=== PATIENT | female | born 1950 | race Hispanic/Latino ===

== ENCOUNTER 2017-08-17 01:09 | Day surgery (SDC) | payer OTHER ==
[2017-08-14 11:53] VITALS: BP 172/78
[2017-08-14 12:19] LABS: BASOPHILS % (AUTO) 0.9 % (0.0-5.0); EOSINOPHILS % (AUTO) 3.7 % (0.0-8.0); HEMATOCRIT 40.9 % (36-48); LYMPHOCYTES % (AUTO) 36.4 % (21.0-51.0); MEAN CORPUSCULAR HEMOGLOBIN 30.1 pg (27.0-33.0); MEAN CORPUSCULAR HGB CONC 34.4 g/dL (32.0-36.0); MEAN CORPUSCULAR VOLUME 87.3 fL (79-99); MONOCYTES % (AUTO) 10.2 % (3.0-13.0); NEUTROPHILS % (AUTO) 48.8 % (40.0-77.0); PLATELET COUNT (AUTO) 255 K/uL (130-400); RED BLOOD CELL COUNT(AUTO) 4.68 MIL/uL (4.00-5.50); RED CELL DISTRIBUTION WIDTH 12.9 % (11.0-15.5); WHITE BLOOD COUNT (AUTO) 6.9 K/uL (4.8-10.8)
[2017-08-14 12:27] LABS: APPEARANCE,URINE Clear (CLEAR); BILIRUBIN,URINE Negative (NEGATIVE); COLOR,URINE Yellow (YELLOW); GLUCOSE, URINE (UA) Negative (NEGATIVE); KETONES,URINE Negative (NEGATIVE); LEUKOCYTE ESTERASE ,URINE Small (NEGATIVE); NITRATE,URINE Negative (NEGATIVE); OCCULT BLOOD,URINE Negative (NEGATIVE); PROTEIN,URINE Negative (NEGATIVE)
[2017-08-14 12:36] LABS: CREATININE 0.9 mg/dL (0.5-1.5); POTASSIUM 4.4 mmol/L (3.5-5.1)
[2017-08-14 12:42] LABS: INR 0.95 (0.85-1.15); PARTIAL THROMBOPLASTIN TIME 27.1 SEC (26.3-35.5)
[2017-08-14 13:24] LABS: BACTERIA,URINE Rare /HPF (None Seen); SQUAMOUS EPITHELIAL CELL,UR Few /LPF (0-2); WBC,URINE 0-1 /HPF (0-1)
[~2017-08-17] VITALS: Ht 156.2 cm; Wt 78.3 kg
[2017-08-17] VITALS (10 sets, daily range): BP systolic 116–149; BP diastolic 60–83
[~2017-08-17 01:09] MED LIST: ACET1TAB25 PO; ASPI-1005 PO; ISOS30TA6 PO; METF500T6 PO; METO-391 PO; NITR0.4T50 SL; OMEP40CA37 PO; PRAV40TA3 PO; SODIUM CHLORIDE 0.9% 500ML 500 ML IV SCH; VALS40TA10 PO
[2017-08-17] MEDS ORDERED: IOPAMIDOL-370 100 ML VIAL IV ONE ×2 (14:48→15:27)
[2017-08-17] MEDS ORDERED: NITROGLYCERIN 5 MG/ML 10 ML VIAL IV ONE (14:48)
[2017-08-17] MEDS ORDERED: ISOVUE-370 50ML VIAL IV ONE (14:48)
[2017-08-17] MEDS ORDERED: LIDOCAINE HCL 2% 20ML ONE (14:48)
[2017-08-17] MEDS ORDERED: SODIUM CHLORIDE 0.9% 1000ML 1,000 ML IV SCH (15:51)
[2017-08-17] MEDS ORDERED: GLUCAGON 1MG KIT 1 MG ML IM PRN (16:00)
[2017-08-17] MEDS ORDERED: METOPROLOL TARTRATE 1 MG/ML 5ML VIAL IV PRN (16:00)
[2017-08-17] MEDS ORDERED: DEXTROSE 50%-WATER 50 ML DISP.SYRIN IV PRN (16:00)
[2017-08-17] MEDS ORDERED: HYDRALAZINE HCL 20 MG/ML VIAL IV PRN (16:00)
== END 2017-08-17 19:37 | disposition home or self-care (01) ==
LOC: DAH 01:09
PROVIDERS: ATTEND Internal Medicine Cardiovascular Disease
DX: I25.119 Atherosclerotic heart disease of native coronary artery with unspecified angina pectoris (principal); I11.9 Hypertensive heart disease without heart failure; E11.9 Type 2 diabetes mellitus without complications; E78.4 Other hyperlipidemia; Z79.82 Long term (current) use of aspirin; Z79.899 Other long term (current) drug therapy; Z95.1 Presence of aortocoronary bypass graft
CPT/HCPCS: 36415; 71045; 80048; 81001; 82948; 85025; 85610; 85730; 93005; 93459; A4606; C1894 ×2; J1644; J3490 ×2; Q9967 ×2

== ENCOUNTER 2025-02-03 07:13 | Day surgery (SDC) | payer OTHER ==
--- NOTE | 2025-02-01 11:11 | EKG ---
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
[2025-02-01 11:19] LABS: IMMATURE GRANULOCYTE ABSOLUTE 0.02 K/uL (0-1); NUCLEATED RED BLOOD CELLS 0.0 % (0.0-0.19); PLATELET COUNT (AUTO) 221 K/uL (130-400); RED BLOOD CELL COUNT(AUTO) 4.54 MIL/uL (4.00-5.50); RED CELL DISTRIBUTION WIDTH 12.7 % (11.0-15.5); WHITE BLOOD COUNT (AUTO) 6.7 K/uL (4.8-10.8)
[2025-02-01 11:26] LABS: CREATININE 0.8 mg/dL (0.5-1.0); GLOMERULAR FILTR. RATE CALC 77.0 mL/min (>90); GLUCOSE,RANDOM 127.0 mg/dL (70-105); SODIUM SERUM 141.0 mmol/L (136-145); UREA NITROGEN, BLOOD 15.0 mg/dL (7-18)
[2025-02-01 11:33] LABS: INR 0.97 (0.85-1.15)
[2025-02-01 11:47] VITALS: BP 159/77; PULSE 66; RESP 17; TEMP 97.9
--- NOTE | 2025-02-01 16:05 | HMCIMG ---
EXAM: CR Chest, 1 View. CLINICAL HISTORY: PREOP COMPARISON: 08/14/2017 FINDINGS: LUNGS: The lungs show no infiltrate or other acute finding. PLEURAL SPACES: No evidence of pleural effusion or pneumothorax. MEDIASTINUM: Cardiac size and mediastinal contours within normal limits. Again noted are sternotomy wires. BONES: No aggressive appearing osseous lesion seen. IMPRESSION: No acute cardiopulmonary pathology is evident. /[place]
[2025-02-03] VITALS (9 sets, daily range): BP systolic 137–152; BP diastolic 42–76; PULSE 48–72; RESP 12–18; TEMP 97.7
[~2025-02-03] VITALS: Ht 154.9 cm; Wt 71.4 kg
[~2025-02-03 07:13] MED LIST changes: -ACET1TAB25 PO; +ATOR40TA71 PO; -ISOS30TA6 PO; +LOSA50TA64 PO; +MELO-108 PO; +METF-444 PO; -METF500T6 PO; -NITR0.4T50 SL; -OMEP40CA37 PO; -PRAV40TA3 PO; -SODIUM CHLORIDE 0.9% 500ML 500 ML IV SCH; -VALS40TA10 PO
[2025-02-03] MEDS: 0.9%NACL 1000ML 1,000 ML IV SCH (08:06)
[2025-02-03] MEDS ORDERED: IOHEXOL 350 MG/ML 100ML INFUS..BTL IV ONE (11:01)
[2025-02-03] MEDS ORDERED: LIDOCAINE HCL 400MG/20ML VIAL ONE (11:01)
[2025-02-03] MEDS ORDERED: NITROGLYCERIN 50MG VIAL ONE (11:02)
[2025-02-03] MEDS ORDERED: HEParin-NS 1,000 UNIT/500 ML 1,000 ML IV ONE (11:02)
[2025-02-03] MEDS ORDERED: MIDAZOLAM HCL 1 MG/ML 2ML VIAL ONE ×2 (11:14→11:43)
[2025-02-03] MEDS ORDERED: HEParin-NS 1,000 UNIT/500 ML 500 ML IV ONE ×2 (11:40→11:41)
[2025-02-03] MEDS ORDERED: GLUCAGON 1MG KIT 1 MG ML IM PRN (12:00)
[2025-02-03] MEDS ORDERED: NITROGLYCERIN 0.4 MG SL TAB SL PRN (12:00)
[2025-02-03] MEDS ORDERED: 0.9%NACL 1000ML 1,000 ML IV SCH (12:00)
[2025-02-03] MEDS ORDERED: DEXTROSE 50%-WATER 50 ML DISP.SYRIN IV PRN (12:00)
--- NOTE | 2025-02-03 12:16 | PRN ---
Left Heart Cath-King PROCEDURE: 1. Right common femoral arterial sheath placement. 2. Selective coronary angiogram. 3. Left heart catheterization. 4. Left ventriculogram. 5. CONSCIOUS SEDATION 6. Omni wire pressure assessment of proximal LAD stent and distal LAD lesion and ostial proximal left circumflex lesion INDICATIONS: Abnormal coronary CT angiogram Chest pain DESCRIPTION OF PROCEDURE: The patient was brought to the catheterization suite and prepped and draped in sterile fashion. An IV was started, if not already in place and both groins were exposed for arterial access. 1% lidocaine was used for local anesthesia and then a micropuncture kit was used to gain access and once free-flowing blood was seen, modified Seldinger technique was utilized to place a 6 [place] Island[place] sheath into the right common femoral artery. Next, preformed JL4 and JR4 Catheters were then used to selectively engage the [place] coronary vessels and multiple hand contrast injections were performed in different views to define the coronary anatomy. With multiple lesions in question it was felt further assessment should be done with an omni wire fracture assessment. Therefore patient was given 5000 units of heparin and a six [place] q.4 guide catheter was then placed into the left coronary system. Next an omni wire was then placed initially in the mid LAD with assessments revealing values of 0.89 and 0.91 and then when we did assessment to the distal LAD lesion that value was at 0.88. Next the Omni wire was then placed to assess the ostial left circumflex and that volume ratio was at 0.66. At end of case Perclose device was used for closure of arteriotomy site and no complications occurred. FINDINGS: The left main artery trifurcates into LAD small ramus intermediate in the left circumflex artery. The left main artery in its distal segment has eccentric stenosis leading into the left circumflex vessel of approximately 40-50%. The left anterior descending artery has a long stent noted from proximal to mid segment within stent restenosis noted proximally 60-70%. There was also a distal LAD lesion that appears to be significant at 75-80%. The ratio after in stent restenosis within the stent was at 0 point nine 0 and 0.89 and then after the distal LAD lesion the ratio was at 0.88. The ramus intermediate in its ostial segment is diffusely disease but as a small-vessel. The left circumflex artery takes off from the left main artery at a-110 degree angle in his a large vessel with an ostial stenosis best appreciated in the JULIETH 5, caudal 37 approximately 85% with an omni wire ratio of 0.66. The ongoing circumflex is free of any significant disease. The right coronary artery and its proximal segment has a 30% lesion. This is a dominant system and gives rise to the PDA and RPL. The LVEF is approximately 60-65%. LVEDP is elevated at 17 mmHg. There was no evidence of aortic stenosis or mitral regurgitation. RECOMMENDATIONS: Considering severe angle of left circumflex and the distal left main involvement in addition to InStent restenosis of LAD stent and distal LAD disease I think patient should have at the very least a surgical opinion regarding possible redo surgery. A patient is not felt to be a surgical candidate as PATTERSON has been utilized in his currently atraumatic we may consider high-risk angioplasty and stenting versus continued medical management versus referral to a higher level of care to proceed with high-risk percutaneous coronary intervention MARRY KING MD Feb 03, 2025 12:16
--- NOTE | 2025-02-03 12:42 | NUR ---
Dr King to speak with Patient and Family at length. All questions answered. Right Femoral site clean, dry with no sign of bleeding, bruising or hematoma. Pedal pulses intact to BLE's. Patient denies c/o jennie or discomfort. IVF's as per orders. HOB 15'. SR's x 2. Call light in reach. Reported off in full to MICHELLE Gage.
--- NOTE | 2025-02-03 15:55 | NUR ---
BOTH PT AND SPOUSE GIVEN VERBAL AND WRITTEN DISCHARGE INSTRUCTIONS. IV REMOVED SITE ASYMPTOMATIC. PT GIVEN WRITTEN PHONE NUMBER AND ADDRESS TO [facility] TOLD THEM TO EXPECT A PHONE CALL FOR FOLLOW UP. IV REMOVED SITE ASYMPTOMATIC. PT TAKEN OUT VIA WHEELCHAIR [facility].
== END 2025-02-03 15:50 | disposition home or self-care (01) ==
LOC: DAH 07:13
PROVIDERS: ATTEND Internal Medicine Cardiovascular Disease
DX: R94.39 Abnormal result of other cardiovascular function study (principal); I25.118 Atherosclerotic heart disease of native coronary artery with other forms of angina pectoris; I25.84 Coronary atherosclerosis due to calcified coronary lesion; T82.855A Stenosis of coronary artery stent, initial encounter; I10 Essential (primary) hypertension; E78.5 Hyperlipidemia, unspecified; Z79.82 Long term (current) use of aspirin; Z79.84 Long term (current) use of oral hypoglycemic drugs; Z95.1 Presence of aortocoronary bypass graft; Z79.899 Other long term (current) drug therapy; Y71.2 Prosthetic and other implants, materials and accessory cardiovascular devices associated with adverse incidents
CPT/HCPCS: 80048; 83880; 85025; 85610; 85730; 36415; 71045; 93005; 93458; 93571; 93572; 82948; 99156; 99157 ×2; C1887; C1894 ×2; C1760; C1769; J3010 ×2; J3490 ×2; J1644 ×4; J2250 ×2; Q9967; A4215; A4335; A4222; A4221; A4663; A4216; A4606; Q9965 ×2; A4223 ×3; A4554; 96360; 96361

== ENCOUNTER 2025-06-09 09:30 | Observation (INO) | payer OTHER ==
--- NOTE | 2025-06-07 12:49 | EKG ---
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
[2025-06-07 12:53] LABS: IMMATURE GRANULOCYTE ABSOLUTE 0.00 K/uL (0-1); NUCLEATED RED BLOOD CELLS 0.0 % (0.0-0.19); PLATELET COUNT (AUTO) 199 K/uL (130-400); RED BLOOD CELL COUNT(AUTO) 4.15 MIL/uL (4.00-5.50); RED CELL DISTRIBUTION WIDTH 12.4 % (11.0-15.5); WHITE BLOOD COUNT (AUTO) 6.5 K/uL (4.8-10.8)
[2025-06-07 13:00] VITALS: BP 140/69; PULSE 73; RESP 16; TEMP 98.1
[2025-06-07 13:08] LABS: CREATININE 0.8 mg/dL (0.5-1.0); GLOMERULAR FILTR. RATE CALC 77.0 mL/min (>90); GLUCOSE,RANDOM 124.0 mg/dL (70-105); SODIUM SERUM 136.0 mmol/L (136-145); UREA NITROGEN, BLOOD 18.0 mg/dL (7-18)
[2025-06-07 13:11] LABS: INR 1.01 (0.85-1.15)
--- NOTE | 2025-06-07 14:13 | HMCIMG ---
STUDY CR chest, 1 view. HISTORY Preoperative evaluation. TECHNIQUE Single frontal view of the chest. COMPARISON Chest radiograph dated 02/01/2025 at 12:10 EDT. FINDINGS Lungs The lungs are clear without focal infiltrate or acute pulmonary abnormality. Pleural spaces No pleural effusion or pneumothorax is identified. Heart and mediastinum The cardiomediastinal silhouette is within normal limits. Bones and soft tissues Median sternotomy sutures are present. No aggressive or acute osseous abnormality is seen. IMPRESSION * Median sternotomy changes without acute cardiopulmonary abnormality. /[place]
[~2025-06-09] VITALS: Ht 167.6 cm; Wt 60.8 kg
[2025-06-09] VITALS (33 sets, daily range): BP systolic 111–153; BP diastolic 51–77; PULSE 59–78; RESP 12–18; TEMP 97–207.1; O2SAT 98
[~2025-06-09 09:30] MED LIST changes: +ISOS30TA92 PO; -MELO-108 PO; +NITR0.4T50 SL
[2025-06-09] MEDS: 0.9%NACL 1000ML 1,000 ML IV ONE (10:48)
[2025-06-09] MEDS ORDERED: LIDOCAINE HCL 400MG/20ML VIAL ONE (13:04)
[2025-06-09] MEDS ORDERED: HEParin-NS 1,000 UNIT/500 ML 1,000 ML IV ONE (13:05)
[2025-06-09] MEDS ORDERED: NITROGLYCERIN 50MG VIAL ONE (13:05)
[2025-06-09] MEDS ORDERED: IOHEXOL 350 MG/ML 100ML INFUS..BTL IV ONE ×2 (13:05→14:30)
[2025-06-09] MEDS ORDERED: MIDAZOLAM HCL 1 MG/ML 2ML VIAL ONE ×2 (13:23→14:32)
[2025-06-09] MEDS ORDERED: BIVALIRUDIN 250 MG/VIAL IV ONE ×2 (13:40→13:55)
[2025-06-09] MEDS ORDERED: GLUCAGON 1MG KIT 1 MG ML IM PRN (15:00)
[2025-06-09] MEDS ORDERED: DEXTROSE 50%-WATER 50 ML DISP.SYRIN IV PRN (15:00)
[2025-06-09] MEDS ORDERED: NITROGLYCERIN 0.4 MG SL TAB SL PRN ×2 (15:00→17:00)
--- NOTE | 2025-06-09 15:09 | PRN ---
PROCEDURES: 1. Right common femoral arterial sheath placement. 2. Selective coronary angiogram. 3. Angioplasty to mid distal LAD 4. Shockwave angioplasty to mid and distal LAD with a 3 mm balloon for a total of 5 treatments 5. 3 mm x 33 mm Xience stent placed to mid and distal LAD deployed to 3.07 mm 6. Shockwave angioplasty only to ostial left circumflex with a 3 mm balloon for a total of 5 treatments INDICATION: Angina class 3 FINDINGS: 75-80% stenosis noted of distal LAD noted on prior study February 03, 2025 80% stenosis of ostial left circumflex noted on prior study February 03, 2025 INTERVENTIONAL REPORT: The patient was brought to the catheterization suite and prepped and draped in sterile fashion. IV was started, and not already in place and both groins were exposed for arterial access. 1% lidocaine was used for local anesthesia and then a micropuncture kit was used to gain access once free-flowing blood was seen, modified Seldinger technique was utilized to place a 7 Greek sheath into the right common femoral artery. Next a 7 Greek Q3.5 guide catheter was then placed in the left coronary system and a run-through wire was placed in the distal LAD. Next an 014 whisper wire was then placed in the distal ongoing left circumflex. Next initially 2 5 mm balloon was then used to dilate the distal LAD stenosis to nominal pressure. Next a 3 mm by 12 mm shockwave balloon was then used to perform angioplasty in mid and distal LAD in overlapping fashion for 5 treatments. Next a 3 mm by 33 mm Xience stent was then placed into the mid and distal LAD and deployed to 3.07 mm. Next a 2.75 mm x 12 mm balloon was then placed in the ostial left circumflex and deployed. Next same 3 mm shockwave balloon was then used to perform 5 treatments in the ostial left circumflex. Follow up contrast injection revealed no evidence of dissection or perforation with 40% residual stenosis. Attempts were made to go back in with a 4 mm shockwave balloon but it would not cross. Secondary to contrast used and fluoroscopy time of 19.6 minutes it was felt test should be terminated. Follow up contrast injection with no evidence of dissection or perforation with BK 3 flow noted in the LAD and left circumflex system. RECOMMENDATIONS: Overnight IV fluids Possible discharge in a.m. Initiate aspirin and Plavix therapy Initiate ranolazine 500 mg twice daily as an outpatient. MARRY MCGUIRE MD Jun 09, 2025 15:09
--- NOTE | 2025-06-09 17:00 | HP ---
[facility] Date of Service: Jun 09, 2025 Time of Service: 16:35 HISTORY OF PRESENT ILLNESS: [ ] admission date:06/09/25 PCP: CC: s/p left heart cath with x1 stent. This is a 75-year-old female that underwent left heart catheterization this morning status post Angioplasty to mid distal LAD; Shockwave angioplasty to mid and distal LAD with a 3 mm balloon for a total of 5 treatments 3 mm x 33 mm Xience stent placed to mid and distal LAD deployed to 3.07 mm and Shockwave angioplasty only to ostial left circumflex with a 3 mm balloon for a total of 5 treatments, we will be placed on observation overnight for IV fluids patient was started on antiplatelet therapy aspirin, Plavix in initiate Ranexa 500 mg twice daily as outpatient. Patient was seen in recovery she is fully awake alert oriented x3. patient seen in recovery : Right groin noted no hematoma no numbness no tingling pulses present. REVIEW OF SYSTEMS CONSTITUTIONAL: Denies fevers, chills, or night sweats. No unintentional weight loss reported. NEUROLOGICAL: Denies headache, amaurosis fugax, motor weakness, sensory deficit, vertigo/spinning sensation, gait abnormalities, or tremors. ENT: No hearing loss, otalgia, otorrhea, rhinitis, rhinorrhea, hoarseness, or sore throat. CARDIOVASCULAR: Denies any exertional angina, dyspnea on exertion, orthopnea, paroxysmal nocturnal dyspnea, palpitations, life-threatening arrhythmias, claudication. PULMONARY: Denies any shortness of breath, cough, phlegm/sputum, hemoptysis, pleuritic chest pain. SLEEP: Denies morning headaches, daytime somnolence or napping. Denies dif ficulty falling asleep, staying asleep, waking from sleep. Denies knowledge of snoring. GASTROINTESTINAL: Denies any type of dysphagia to either liquids or solids. Denies nausea, vomiting, pyrosis, early satiety, abdominal pain, diarrhea, constipation, or changes in stool consistency or caliber. Denies coffee-ground emesis, hematemesis, hematochezia, or melanotic stools. GENITOURINARY: Denies frequency, urgency, nocturia, hematuria or incontinence (Storage/Irritative symptoms.) Low urinary stream, straining to void, urinary intermittency or hesitancy, splitting of the voiding stream, terminal dribbling. ENDOCRINOLOGIC: Denies polyuria, polydipsia, polyphagia or heat/cold i ntolerances. HEMATOLOGIC: Denies thrombophilia/previous clots, or coagulopathy/bleeding disorders. ONCOLOGIC: Denies personal history of malignancy. DERMATOLOGIC: Denies rashes or pruritus. PSYCHIATRIC: Denies any suicidal or homicidal ideation. Denies hallucinations. PAST MEDICAL HISTORY: [ ] CAD hypertension hyperlipidemia venous insufficiency PAST SURGICAL HISTORY: [ ] CABG x3 PAST SOCIAL HISTORY: [ ] Patient never smoked tobacco products or alcohol use. FAMILY HISTORY: [ ]noncontributory Coded Allergies: No Known Drug Allergies (Unverified Allergy, Unknown, 08/14/17) PHYSICAL EXAM GENERAL APPEARANCE: The patient is awake, alert, and oriented, in no acute cardiopulmonary distress. NEUROLOGICAL: Cranial nerves II-XII grossly intact. Motor is 5/5 in bilateral upper and lower extremities proximal to distal. No sensory deficits. HEENT: Face is symmetric. Pupils are equal and reactive. Extraocular movements are intact. NECK: Supple. No JVD. No thyromegaly. No submental, submandibular, pre- /postauricular, occipital or supraclavicular lymphadenopathy. CHEST: Normal chest expansion. No Telemetry. LUNGS: Absence of any rales, rhonchi or any wheezing. CARDIOVASCULAR: Regular. S1 and S2 normal. No appreciable rubs, murmurs or gallops. ABDOMEN: Soft, nontender, and nondistended. There is no rebound, voluntary guarding, or rigidity. : Deferred. No Diamond. EXTREMITIES: Non-edematous and not cyanotic. No clubbing. Good capillary refill. SKIN: No skin breakdown. Vital Sign (Last 24 Hours) 06/09/25 16:20 Temp 207.1 Pulse 64 Resp 18 B/P (MAP) 129/52 Pulse Ox 98 O2 Delivery Room Air LABS: Laboratory: Test 06/09/25 10:09 Range/Units Whole Blood Glucose 137 H 70-110 MG/DL Current Medications Medications (Trade) Dose Ordered Sig/Marium Route PRN Reason Start Time Stop Time Status Last Admin Dose Admin Aspirin (Aspirin 81mg Chew Tab) 81 mg DAILY PO 06/10/25 09:00 07/10/25 08:59 Clopidogrel Bisulfate (plaVIX 75MG) 75 mg DAILY PO 06/10/25 09:00 07/10/25 08:59 Dextrose (D50w) 50 ml AD PRN IV HYPOGLYCEMIA PROTOCOL 06/09/25 15:00 07/09/25 14:59 Glucagon (Glucagon 1mg Kit) 1 mg AD PRN IM HYPOGLYCEMIA PROTOCOL 06/09/25 15:00 07/09/25 14:59 Nitroglycerin (Nitrostat) 0.4 mg AD PRN SL CHEST PAIN 06/09/25 15:00 07/09/25 14:59 Sodium Chloride 1,000 ml @ 100 mls/hr Q10H IV 06/09/25 15:00 06/09/25 20:59 DIAGNOSTICS / RADIOLOGY: [ ] ASSESSMENT: CAD s/p Stent LAD Atypical chest pain POA HLD HTN PLAN: Admit:PCCU condition: guarded Status:full code IVF:NS at 100 ml hr 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 Home medications pending to be reviewed by RN nurse. PRN: MEDICATIONS Tylenol 650 mg po every 4 hrs for fever zofran 4 mg IV every 6 hrs for n/v Hydralazine 5 mg IV every 4 hrs systolic pressure > 160 bowel regiment: lactulose 20 gm PO BID PRN constipation home medications resumed followed dr King recommendations. Supportive measures: DVT ppx, GI ppx all questions answered time spent: > 35 min Supervising MD: Dr. Stevan Mendoza c/d This document was generated in part using voice recognition software, occasional wrong word or sound alike substitutions may have occurred due to the inherent limitations of voice recognition software. Read the chart carefully and recognize using context, where the substitutions have occurred. Although every effort was made to edit the content, annealing oven operator and typing errors may occur ADVANCED CARE PLANNING 1. Which of the following were discussed? Hospice Care - Yes / No Therapeutic options - Yes / No Advance Directives - Yes / No Other discussions - 2. Discussed with who? 3. Voluntary nature of this service was explained to the patient? Yes / No 4. Amount of time spent - 5. Reviewed by Physician? (if this service was performed by NPP) Yes / No ATTESTATION BY PHYSICIAN I have seen and examined the patient. I reviewed the documentation, medical decision making, and treatment plan as noted by the mid-level provider above. I agree with the findings and plan of care. TARIQ PERKINS MD, [facility] Jun 09, 2025 17:00
[2025-06-09] MEDS ORDERED: ATROPINE 1MG SYG IVP ONE (17:34)
--- NOTE | 2025-06-09 19:45 | NUR ---
REPORT CALLED TO LORRAINE LYON IN [facility]
--- NOTE | 2025-06-09 20:03 | NUR ---
PT TRANSFERED TO [facility] VIA HOSPITAL BED WITHOUT INCIDENT
[2025-06-09] MEDS: RANOLAZINE 500 MG TAB.SR.12H PO SCH (21:13)
--- NOTE | 2025-06-09 22:00 | NUR ---
Pt had emesis episode stating having severe nausea, notified division roadmaster for hospitalist and received order for zofran iv prn for nausea. Pt emesis had solid chunks in it like food and pt states being given part of a sandwich in day patient. Pt oxygen saturation is 95% and pt denies having any trouble breathing at this time.
[2025-06-10] VITALS (7 sets, daily range): BP systolic 108–128; BP diastolic 52–65; PULSE 60–119; RESP 11–19; TEMP 97.8–98.1; O2SAT 96
--- NOTE | 2025-06-10 02:00 | NUR ---
Pt had another emesis episode, producing liquid clear emesis. Pt states having sour taste in her throat and that she has acid reflux at home. Pt states that nausea was provoked by pt turning her head in bed. Notified plate conditioner for hospitalist and received order for protonix 40mg iv push now, repeated back order.
[2025-06-10 03:57] LABS: NUCLEATED RED BLOOD CELLS 0.0 % (0.0-0.19); PLATELET COUNT (AUTO) 179.0 K/uL (130-400); RED BLOOD CELL COUNT(AUTO) 4.04 MIL/uL (4.00-5.50); RED CELL DISTRIBUTION WIDTH 12.4 % (11.0-15.5); WHITE BLOOD COUNT (AUTO) 7.7 K/uL (4.8-10.8)
[2025-06-10 04:25] LABS: ASPARTATE AMINOTRANSFERASE 25.0 U/L (10-37); CREATININE 0.9 mg/dL (0.5-1.0); GLOMERULAR FILTR. RATE CALC 67.0 mL/min (>90); GLUCOSE,RANDOM 140.0 mg/dL (70-105); SODIUM SERUM 137.0 mmol/L (136-145); TOTAL PROTEIN, SERUM 6.5 g/dL (6.0-8.3); UREA NITROGEN, BLOOD 16.0 mg/dL (7-18)
[2025-06-10] MEDS ORDERED: ASPIRIN 81 MG EC TAB PO SCH (09:00)
--- NOTE | 2025-06-10 09:11 | PN ---
[facility] CARDIOLOGY PROGRESS NOTE Cardiology progress note dictated for Marta Florez MD Date Patient Seen: Jun 10, 2025 Time of Visit: 09:10 Interval History: The patient is status post coronary angiogram on 06/09/2025. Right groin without hematoma. Physical Examination: GENERAL: No acute distress. HEAD: Normal with no signs of head trauma. EYES: conjunctiva and sclera normal. NECK: Supple without JVD. LUNGS: Clear breath sounds bilaterally. No wheezes, or rhonchi. HEART: Normal rate and rhythm. Normal S1 and S2 without murmurs, gallop or rub. VASC: Peripheral pulses +2 bilaterally. EXT: No clubbing, cyanosis or edema. Right groin with dressing in place, is soft to touch, no hematoma noted. NEURO: Awake, alert, and oriented x3. No focal neurological deficits noted. Laboratory: Hematology Labs: Test 06/10/25 03:39 Range/Units White Blood Count 7.7 4.8-10.8 K/uL Red Blood Count 4.04 4.00-5.50 MIL/uL Hemoglobin 11.9 L 12.0-16.0 g/dL Hematocrit 36.0 36-48 % Mean Corpuscular Volume 89.1 79-99 fL Mean Corpuscular Hemoglobin 29.5 27.0-33.0 pg Mean Corpuscular Hemoglobin Concent 33.1 32.0-36.0 g/dL Red Cell Distribution Width 12.4 11.0-15.5 % Platelet Count 179 130-400 K/uL Mean Platelet Volume 9.2 7.5-10.5 fL Nucleated Red Blood Cells 0.0 0.0-0.19 % Chemistry Labs: Test 06/10/25 03:39 06/10/25 02:38 Range/Units Sodium Level 137 136-145 mmol/L Potassium Level 3.9 3.5-5.1 mmol/L Chloride Level 104 101-111 mmol/L Carbon Dioxide Level 27 21-32 mmol/L Blood Urea Nitrogen 16 7-18 mg/dL Creatinine 0.9 0.5-1.0 mg/dL Glomerular Filtration Rate Calc 67 >90 mL/min Random Glucose 140 H 70-105 mg/dL Total Calcium 8.1 L 8.5-10.1 mg/dL Total Bilirubin 2.6 H 0.2-1.0 mg/dL Aspartate Amino Transf (AST/SGOT) 25 10-37 U/L Alanine Aminotransferase (ALT/SGPT) 16 12-78 U/L Alkaline Phosphatase 158 H 50-136 U/L Total Protein 6.5 6.0-8.3 g/dL Albumin 3.3 L 3.5-5.0 g/dL Whole Blood Glucose 135 H 70-110 MG/DL Diagnostics / Radiology: Impression and Plan: [facility]/coronary angiogram on 06/09/2025 with 75-80% stenosis of the distal LAD and 80% stenosis of the ostial left circumflex s/p shockwave angioplasty/stent to mid and distal LAD with a 3 mm x 33 mm Xience stent deployed to 3.07 mm, and shockwave angioplasty only to ostial left circumflex -Continue aspirin 81 mg daily, Plavix 75 mg daily, metoprolol succinate 50 mg daily, losartan 50 mg daily, isosorbide mononitrate 30 mg daily, and ranolazine 500 mg b.i.d. VASHTI LYNCH [facility] Jun 10, 2025 09:11
[2025-06-10] MEDS: 0.9%NACL 1000ML 1,000 ML IV SCH (09:12)
[2025-06-10] MEDS: ASPIRIN 81MG CHEW TAB PO SCH (09:12)
[2025-06-10] MEDS: ISOSORBIDE MONO 30MG SR TAB PO SCH (09:13)
--- NOTE | 2025-06-10 10:51 | DS ---
Discharge Summary Hospital Course Summary: admission date:06/09/25 PCP: Keenan Shaw MD CC: s/p left heart cath with x1 stent. This is a 75-year-old female that underwent left heart catheterization this morning status post Angioplasty to mid distal LAD; Shockwave angioplasty to mid and distal LAD with a 3 mm balloon for a total of 5 treatments 3 mm x 33 mm Xience stent placed to mid and distal LAD deployed to 3.07 mm and Shockwave angioplasty only to ostial left circumflex with a 3 mm balloon for a total of 5 treatments, we will be placed on observation overnight for IV fluids patient was started on antiplatelet therapy aspirin, Plavix in initiate Ranexa 500 mg twice daily as outpatient. Patient was seen in recovery she is fully awake alert oriented x3. patient seen in recovery : Right groin noted no hematoma no numbness no tingling pulses present. 06/10/25 patient is clinically stable. Patient will need to follow-up on Thursday with Dr. King's office for outpatient Holter monitoring her metoprolol we will be discontinued as per undercover agent: s/p left heart cath: Right groin noted no hematoma. Patient will be discharged on Ranexa and Plavix as directed by undercover agent's. All questions and concerns were addressed patient is hemodynamically stable for discharge. Procedure(s): [address] [id number] PROCEDURES: 1. Right common femoral arterial sheath placement. 2. Selective coronary angiogram. 3. Angioplasty to mid distal LAD 4. Shockwave angioplasty to mid and distal LAD with a 3 mm balloon for a total of 5 treatments 5. 3 mm x 33 mm Xience stent placed to mid and distal LAD deployed to 3.07 mm 6. Shockwave angioplasty only to ostial left circumflex with a 3 mm balloon for a total of 5 treatments INDICATION: Angina class 3 FINDINGS: 75-80% stenosis noted of distal LAD noted on prior study February 03, 2025 80% stenosis of ostial left circumflex noted on prior study February 03, 2025 INTERVENTIONAL REPORT: The patient was brought to the catheterization suite and prepped and draped in sterile fashion. IV was started, and not already in place and both groins were exposed for arterial access. 1% lidocaine was used for local anesthesia and then a micropuncture kit was used to gain access once free-flowing blood was seen, modified Seldinger technique was utilized to place a 7 [place] sheath into the right common femoral artery. Next a 7 [place] Q3.5 guide catheter was then placed in the left coronary system and a run-through wire was placed in the distal LAD. Next an 014 whisper wire was then placed in the distal ongoing left circumflex. Next initially 2 5 mm balloon was then used to dilate the distal LAD stenosis to nominal pressure. Next a 3 mm by 12 mm shockwave balloon was then used to perform angioplasty in mid and distal LAD in overlapping fashion for 5 treatments. Next a 3 mm by 33 mm Xience stent was then placed into the mid and distal LAD and deployed to 3.07 mm. Next a 2.75 mm x 12 mm balloon was then placed in the ostial left circumflex and deployed. Next same 3 mm shockwave balloon was then used to perform 5 treatments in the ostial left circumflex. Follow up contrast injection revealed no evidence of dissection or perforation with 40% residual stenosis. Attempts were made to go back in with a 4 mm shockwave balloon but it would not cross. Secondary to contrast used and fluoroscopy time of 19.6 minutes it was felt test should be terminated. Follow up contrast injection with no evidence of dissection or perforation with BK 3 flow noted in the LAD and left circumflex system. RECOMMENDATIONS: Overnight IV fluids Possible discharge in a.m. Initiate aspirin and Plavix therapy Initiate ranolazine 500 mg twice daily as an outpatient. 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 PCP: Dr Keenan Shaw 2-3 days PROCEDURES: Left Heart Cath: IMAGING (S) report attached to summary : none MICROBIOLOGY: report attached to summary; none ACTIVITY: ab libs HOME MEDICATIONS reviewed home medications CHANGES ON HOME MEDICATIONS none NEW MEDICATIONS Ranexa 500 mg po bid, Plavix 25 mg po daily TEACHING: fall precaution Emergency instructions: The patient was instructed to present to the nearest Emergency Department or call 911 should their symptoms return or worsen. Home Medications: Active Scripts Ranolazine (RANEXA) 500 Mg Tab.er.12h, 500 MG PO BID for 30 Days, #60 TAB 0 Refills Prov:ANTHONY MONTEIRO [facility] 06/10/25 Clopidogrel Bisulfate (Plavix) 75 Mg Tablet, 75 MG PO DAILY for 30 Days, #30 TAB 0 Refills Prov:ANTHONY MONTEIRO [facility] 06/10/25 Reported Medications Nitroglycerin (Nitroglycerin) 0.4 Mg Tab.subl, 0.4 MG SL AD PRN for CHEST PAIN, TAB.SL 06/07/25 Isosorbide Mononitrate (Isosorbide Mononitrate ER) 30 Mg Tab.er.24h, 30 MG PO DAILY, TAB 06/07/25 Losartan Potassium (Losartan Potassium) 50 Mg Tablet, 50 MG PO AM, TAB 02/01/25 Atorvastatin Calcium (Atorvastatin Calcium) 40 Mg Tablet, 40 MG PO HS, TAB 02/01/25 Aspirin (ASPIRIN 81MG CHEW TAB) 81 Mg Tab.chew, 81 MG PO DAILY, TAB.CHEW 08/14/17 Metformin HCl (Metformin HCl) 500 Mg Tablet, 500 MG PO AM, TAB 08/14/17 Discontinued Reported Medications Metoprolol Succinate (Metoprolol Succinate) 50 Mg Tab.er.24h, 50 MG PO DAILY, TAB 08/14/17 Meloxicam (Meloxicam) 15 Mg Tablet, 15 MG PO DAILY PRN for PAIN, TAB 02/01/25 New Medications: Clopidogrel Bisulfate (Plavix) 75 Mg Tablet 75 MG PO DAILY for 30 Days, #30 TAB 0 Refills Ranolazine (Ranexa) 500 Mg Tab.er.12h 500 MG PO BID for 30 Days, #60 TAB 0 Refills Continued Medications: Aspirin (Aspirin 81MG Chew Tab) 81 Mg Tab.chew 81 MG PO DAILY, TAB.CHEW Atorvastatin Calcium (Atorvastatin Calcium) 40 Mg Tablet 40 MG PO HS, TAB Isosorbide Mononitrate (Isosorbide Mononitrate ER) 30 Mg Tab.er.24h 30 MG PO DAILY, TAB Losartan Potassium (Losartan Potassium) 50 Mg Tablet 50 MG PO AM, TAB Metformin HCl (Metformin HCl) 500 Mg Tablet 500 MG PO AM, TAB Nitroglycerin (Nitroglycerin) 0.4 Mg Tab.subl 0.4 MG SL AD PRN for CHEST PAIN, TAB.SL Discontinued Medications: Metoprolol Succinate (Metoprolol Succinate) 50 Mg Tab.er.24h 50 MG PO DAILY, TAB Time spent arranging discharge: 31-60 minutes ATTESTATION BY PHYSICIAN I have seen and examined the patient. I reviewed the documentation, medical decision making, and treatment plan as noted by the mid-level provider above. I agree with the findings and plan of care. TARIQ PERKINS MD, [facility] Jun 10, 2025 10:51
[2025-06-10] MEDS ORDERED: CLOP-31 PO (11:04)
[2025-06-10] MEDS ORDERED: RANO500T2 PO (11:04)
--- NOTE | 2025-06-10 13:00 | NUR ---
DISCHARGE HOME IV, ID BANDS, AND TELEPAK REMOVED.DISCHARGE INSTRUCTIONS GIVEN AND EXPLAINED TO PATIENT BY DR. PERKINS AND MYSELF. PATIENT WHEELED DOWN TO PRIVATE CAR.
== END 2025-06-10 13:00 | disposition home or self-care (01) ==
LOC: DAH 09:30 → DAHIP 14:59 → 2AH 20:00
PROVIDERS: ADMIT Internal Medicine; ATTEND Internal Medicine
DX: I25.119 Atherosclerotic heart disease of native coronary artery with unspecified angina pectoris (principal); I10 Essential (primary) hypertension; E78.5 Hyperlipidemia, unspecified; Z79.82 Long term (current) use of aspirin; Z79.899 Other long term (current) drug therapy; Z95.1 Presence of aortocoronary bypass graft; Z95.5 Presence of coronary angioplasty implant and graft
CPT/HCPCS: 80048; 83880; 85025; 85610; 85730; 36415 ×2; 71045; 93005; 92978; 92979; 92972 ×2; 92920; 99156; 99157 ×6; 96374; 82948 ×3; 96375; 80053; 85027; C1769 ×3; C1887; C1894 ×2; C1725 ×2; C1761; C1753; Q9965 ×3; C1874; G0378 ×22; J3010; J3490 ×2; J7030; J2250 ×2; J2405; J1644; J0583 ×2; Q9967 ×2; A4615; A4215; A4554; A6402; A4657; A4223 ×2; A6260; A4221; A4663; A4216; A4606; C9600; J2470; J0461